=== PATIENT | male | born 1950 | race Caucasian/White ===

== ENCOUNTER 2017-05-31 15:19 | Emergency (ER) | payer MEDICARE, OTHER ==
[~2017-05-31] VITALS: Ht 175.3 cm; Wt 104.5 kg
[~2017-05-31 15:19] MED LIST: LEVAQUIN 5500 MG/TA1 PO; PREDNISONE20 MG PO; PROAIR HFA0.09 MG/AC IH; RT SPIRIVA18 MCG IH
[2017-05-31 15:26] VITALS: TEMP 96.9
[2017-05-31 16:11] LABS: BASO # 0.1 (0.0-0.2); BASO % 0.6 % (0.0-2.0); EOS # 0.8 (0.0-0.7); GRAN # 6.3 (1.4-6.5); GRAN % 62.5 % (42.2-75.2); HEMOGLOBIN 14.7 g/dl (13.5-18.0); LYMPH # 1.7 (1.2-3.4); MEAN CELL VOLUME 96 fl (80.0-100.0); MEAN CORPUSCULAR HEMOGLOBIN 32 pg (27.0-31.0); MEAN CORPUSCULAR HGB CONC 33 g/dl (33.0-37.0); MEAN PLATELET VOLUME 11.4 fl (7.4-10.4); MONO # 1.2 (0.1-0.6); MONO % 11.5 % (1.7-9.3); PLATELET COUNT 220 K/mm3 (130-400); WHITE BLOOD COUNT 10.1 K/mm3 (4.8-10.8)
[2017-05-31] MEDS ORDERED: PREDNISONE20 MG PO (16:14)
[2017-05-31 16:17] LABS: CALCIUM 9.5 mg/dL (8.4-10.2); CREATININE, serum 1.74 mg/dL (0.66-1.25); POTASSIUM 4.1 mmol/L (3.4-5.0)
[2017-05-31] MEDS ORDERED: ZYRTEC5 MG PO (16:19)
[2017-05-31] MEDS ORDERED: SINGULAIR 110 MG/TAB PO (16:20)
[2017-05-31] MEDS ORDERED: DALIRESP500 MCG PO (16:21)
[2017-05-31] MEDS ORDERED: STIOLTO RESPIMAT4 GM IH (16:21)
[2017-05-31] MEDS ORDERED: LEVAQUIN 750MG750 M1 PO (17:53)
[2017-05-31 18:44] VITALS: BP 131/65; PULSE 111
== END 2017-05-31 18:50 | disposition home or self-care (01) ==
LOC: COL.ER 15:19
PROVIDERS: Emergency Medicine
DX: J44.1 Chronic obstructive pulmonary disease with (acute) exacerbation (principal)
CPT/HCPCS: J7030; J7512